=== PATIENT | female | born 1950 | race Caucasian/White ===

== ENCOUNTER 2022-09-23 10:52 | Emergency (ER) | payer MEDICARE ==
[2022-09-23] MEDS ORDERED: Ketorolac 30 MG/ML SDV IM ONE (12:33)
== END 2022-09-23 13:05 | disposition home or self-care (01) ==
LOC: JP.ED 10:52
DX: M62.830 Muscle spasm of back (principal); E03.9 Hypothyroidism, unspecified; Z88.1 Allergy status to other antibiotic agents; Z79.899 Other long term (current) drug therapy
CPT/HCPCS: 96372; 99283; J1885; J3360